=== PATIENT | male | born 1990 | race Caucasian/White ===

== ENCOUNTER → 2021-06-05 | Outpatient (CLI) | payer OTHER ==
--- NOTE | 2021-06-05 10:36 | CA ---
Transthoracic Echo Report Name: Celestine Rowe Age: 30 Gender: M : 1990 Exam Date: 06/05/2021 08:34 Exam Location: [facility] Ht (in): 72 Wt (lb): 203 Ordering Physician: Angeli Roman MD Attending/Referring Phys: [employer] Mayda Zamora RDCS Procedure CPT: Indications: i10 Cardiac Hx: Technical Quality: Good Contrast 1: Total Dose (mL): Contrast 2: Total Dose (mL): MEASUREMENTS (Male / Female) Normal Values 2D ECHO LV Diastolic Diameter PLAX 2.9 cm 4.2 - 5.9 / 3.9 - 5.3 cm LV Systolic Diameter PLAX 1.6 cm IVS Diastolic Thickness 1.7 cm 0.6 - 1.0 / 0.6 - 0.9 cm LVPW Diastolic Thickness 1.5 cm 0.6 - 1.0 / 0.6 - 0.9 cm LV Relative Wall Thickness 1.1 RV Internal Dim ED PLAX 2.8 cm LA Volume 39.5 cm 18 - 58 / 22 - 52 cm M-MODE Aortic Root Diameter MM 3.6 cm LA Systolic Diameter MM 2.6 cm LA Ao Ratio MM 0.7 MV E Point Septal Separation 1.5 cm AV Cusp Separation MM 2.0 cm DOPPLER AV Peak Velocity 107.7 cm/s AV Peak Gradient 4.6 mmHg MV Area PHT 3.1 cm MR Peak Velocity 93.9 cm/s MR Peak Gradient 3.5 mmHg Mitral E Point Velocity 74.7 cm/s Mitral A Point Velocity 48.8 cm/s Mitral E to A Ratio 1.5 MV Deceleration Time 247.7 ms MV E' Velocity 13.5 cm/s Mitral E to MV E' Ratio 5.5 TR Peak Velocity 172.0 cm/s TR Peak Gradient 11.8 mmHg Right Ventricular Systolic Press 16.0 mmHg PV Peak Velocity 116.3 cm/s PV Peak Gradient 5.4 mmHg PI Peak Gradient 9.5 mmHg FINDINGS Left Ventricle Moderately increased septal wall thickness. Left ventricular ejection fraction is estimated at 55-60_Normal left ventricular systolic function with no obvious regional wall motion abnormalities. %. Right Ventricle The right ventricle is normal in size and function. Right Atrium The right atrium is normal in size. Left Atrium The left atrium is normal in size. Mitral Valve Structurally normal mitral valve without significant stenosis or prolapse. There is mild mitral regurgitation. Aortic Valve Structurally normal aortic valve without significant sclerosis or stenosis. There is no aortic regurgitation. Tricuspid Valve Structurally normal tricuspid valve without significant stenosis. Pulmonary artery systolic pressure is normal. Trace tricuspid regurgitation. Pulmonic Valve Structurally normal pulmonic valve without significant stenosis. There is a trace pulmonic regurgitation. Pericardium Normal pericardium without effusion. Aorta Normal aortic root dimension. CONCLUSIONS #1. Moderate concentric left ventricle hypertrophy with a preserved LV function and ejection fraction of 55-60% #2. Mild mitral regurgitation. #3. Normal chamber sizes. #4. No pericardial effusion Previewed by: Dr. Soumya Lott MD (Electronically Signed) Final Date: 05 June 2021 10:35
--- NOTE | 2021-06-05 10:46 | P.STRESS ---
- Stress Test Note Stress Test Results/Findings: Exam Performed: stress test Exam Date: 06/05/21 Reason for Exam: HYPERTENSION Height: 5 ft 11 in Weight: 93.2 kg Protocol: CLAIRE Stage: 5 Duration of Exercise: 13:00 Resting Heart Rate: 72 Resting Blood Pressure: 147/93 Maximum Achieved Heart Rate: 193 Maximum Achieved Blood Pressure: 190/100 85% PMHR: 160 100% PMHR: 188 METS: 13.9 Technologist Comment: Stress Test Results/Findings: This is a 30-year-old gentleman with history of hypertension and family history being evaluated for cardiac status. Stress data: Baseline EKG showed sinus rhythm with normal UT interval and QRS duration. Blood pressure at rest is 147/93 with pulse rate of 72. Patient walked on the Claire protocol for 13 minutes achieving a maximal rate of 193 with a blood pressure 170/76. EKGs taken during and after exercise did not reveal significant changes from the baseline. Final impression: #1. Negative stress test #2. Patient did not experience any chest pain #3. No arrhythmias noted. #4. Patient's exercise capacity is average 2
--- NOTE | 2021-06-05 14:11 | EST ---
Stress Test Results/Findings: Exam Performed: stress test Exam Date: 06/05/21 Reason for Exam: HYPERTENSION Height: 5 ft 11 in Weight: 93.2 kg Protocol: CLAIRE Stage: 5 Duration of Exercise: 13:00 Resting Heart Rate: 72 Resting Blood Pressure: 147/93 Maximum Achieved Heart Rate: 193 Maximum Achieved Blood Pressure: 190/100 85% PMHR: 160 100% PMHR: 188 METS: 13.9 Technologist Comment: Stress Test Results/Findings: This is a 30-year-old gentleman with history of hypertension and family history being evaluated for cardiac status. Stress data: Baseline EKG showed sinus rhythm with normal MO interval and QRS duration. Blood pressure at rest is 147/93 with pulse rate of 72. Patient walked on the Claire protocol for 13 minutes achieving a maximal rate of 193 with a blood pressure 170/76. EKGs taken during and after exercise did not reveal significant changes from the baseline. Final impression: #1. Negative stress test #2. Patient did not experience any chest pain #3. No arrhythmias noted. #4. Patient's exercise capacity is average 2 MTDD
== END | disposition home or self-care (01) ==
LOC: RADECHMAIN 08:14
PROVIDERS: ATTEND Internal Medicine
DX: I51.7 Cardiomegaly (principal); I34.0 Nonrheumatic mitral (valve) insufficiency
CPT/HCPCS: 93017; 93306

== ENCOUNTER 2022-05-12 07:48 | Emergency (ER) | payer BC, OTHER ==
[2022-05-12 07:53] VITALS: TEMP 98.1
--- NOTE | 2022-05-12 08:07 | ED ---
General Adult HPI - General Chief complaint: Chest Pain Stated complaint: chest pain Time Seen by Provider: 05/12/22 07:53 Source: patient Mode of arrival: ambulatory Limitations: no limitations - History of Present Illness Initial comments: Dictation was produced using [employer] dictation software. please excuse any grammatical, word or spelling errors. Chief Complaint: 31-year-old male past history of hypertension presents to the emergency room for chest pain History of Present Illness: 31-year-old male with past medical history of hypertension presents to the emergency department for chest pain states that he has jolt T sharp chest pain to his substernal chest. Is nonradiating. Not associated with diaphoresis or nausea. It is not reproducible. Denies else worse with deep inspiration or with any sort of movements. He does report having positive family history. His father was diagnosed with a heart attack in his 40s. The ROS documented in this emergency department record has been reviewed and confirmed by me. Those systems with pertinent positive or negative responses have been documented in the HPI. All other systems are other negative and/or noncontributory. PHYSICAL EXAM: General Impression: Alert and oriented x3, not in acute distress HEENT: Normocephalic atraumatic, extra-ocular movements intact, pupils equal and reactive to light bilaterally, mucous membranes moist. Cardiovascular: Heart regular rate and rhythm Chest: Able to complete full sentences, no retractions, no tachypnea Abdomen: abdomen soft, non-tender, non-distended, no organomegaly Musculoskeletal: Pulses present and equal in all extremities, no peripheral edema Motor: no focal deficits noted Neurological: CN II-XII grossly intact, no focal motor or sensory deficits noted Skin: Intact with no visualized rashes Psych: Normal affect and mood ED course: 31-year-old male presents emergency department with atypical chest pain. He does have alleged significant family history. Vital signs upon arrival are within acceptable limits. EKG does not show any signs of ischemia or infarction. Nursing notes and chart review was performed EKG interpreted by me: Ventricular rate 83, sinus rhythm, AZ interval 161, QRS 106, QTC 292. No AZ prolongation, no QTC prolongation, no ST or T-wave changes noted. Overall, this EKG is unremarkable Was pt. sent in by a medical professional or institution (, PA, FILTER PRESS SUPERVISOR, urgent care, hospital, or longterm...) When possible be specific @ -No Did you speak to anyone other than the patient for history (EMS, parent, family, police, friend...)? What history was obtained from this source @ -No Did you review nursing and triage notes (agree or disagree)? Why? @ -I reviewed and agree with nursing and triage notes Were old charts reviewed (outside hosp., previous admission, EMS record, old EKG, old radiological studies, urgent care reports/EKG's, longterm records)? Report findings @ -No old charts were reviewed Differential Diagnosis (chest pain, altered mental status, abdominal pain women, abdominal pain men, vaginal bleeding, musculoskeletal, weakness, fever, dyspnea, syncope, headache, dizziness, GI bleed, back pain, seizure, CVA, palpatations, mental health)? @ -MDM differential chest pain EKG interpreted by me (3pts min.). @ -See above X-rays interpreted by me (1pt min.). @ -Acute processes CT interpreted by me (1pt min.). @ -None done U/S interpreted by me (1pt. min.). @ -None done What testing was considered but not performed or refused? (CT, X-rays, U/S, labs)? Why? @ -D-dimer was considered however patient is not high risk for PE What meds were considered but not given or refused? Why? @ -Felipe was considered however patient is low risk for ACS Did you discuss the management of the patient with other professionals (professionals i.e. , PA, FILTER PRESS SUPERVISOR, lab, RT, psych nurse, social work associate, fur blowing machine operator, teacher, pharmaceutical officer, ed case manager)? Give summary @ -No Was smoking cessation discussed for >3mins.? @ -No Was critical care preformed (if so, how long)? @ -No Were there social determinants of health that impacted care today? How? (Homelessness, low income, unemployed, alcoholism, drug addiction, transportation, low edu. Level, literacy, decrease access to med. care, residential, rehab)? @ -No Was there de-escalation of care discussed even if they declined (Discuss DNR or withdrawal of care, Hospice)? DNR status @ -No What co-morbidities impacted this encounter? (DM, HTN, Smoking, COPD, CAD, Cancer, CVA, ARF, Chemo, Hep., AIDS, mental health diagnosis, sleep apnea, morbid obesity)? @ -None Was patient admitted / discharged? Hospital course, mention meds given and route, prescriptions, significant lab abnormalities, going to OR and other pertinent info. @ -31-year-old male presents emergency department with atypical chest pain. Laboratory evaluation unremarkable. EKG is negative. Patient reevaluated at 9:12 AM found to be in stable medical condition. Second troponin was discussed with patient he did not want to wait around for the second test. Patient preferred to be discharge with return precautions. He is advised follow up with primary care doctor. Undiagnosed new problem with uncertain prognosis? @ -No Drug Therapy requiring intensive monitoring for toxicity (Heparin, Nitro, Insulin, Cardizem)? @ -No Were any procedures done? @ -No Diagnosis/symptom? Acute, or Chronic, or Acute on Chronic? Uncomplicated (without systemic symptoms) or Complicated (systemic symptoms)? @ -1. Acute atypical chest pain, no obvious source, no high-risk features Side effects of treatment? @ -No Exacerbation, Progression, or Severe Exacerbation? @ -No Poses a threat to life or bodily function? How? (Chest pain, [place], [place], pneumonia, PE, COPD, DKA, ARF, appy, cholecystitis, CVA, Diverticulitis, Homicidal, Suicidal, threat to staff... and all critical care pts) @ -No - Related Data Home Medications Medication Instructions Recorded Confirmed valACYclovir HCL [Valtrex] 500 mg PO DAILY 01/05/16 01/05/16 Previous Rx's Medication Instructions Recorded Sulfamethoxazole/Trimethoprim 1 each PO Q12H 14 Days tab 01/05/16 [Bactrim DS 800-160 mg] Allergies Allergy/AdvReac Type Severity Reaction Status Date / Time grass pollen Allergy Unknown Verified 05/12/22 07:52 Review of Systems ROS Statement: Those systems with pertinent positive or pertinent negative responses have been documented in the HPI. ROS Other: All systems not noted in ROS Statement are negative. Past Medical History Past Medical History: No Reported History History of Any Multi-Drug Resistant Organisms: None Reported Past Surgical History: No Surgical Hx Reported Past Psychological History: No Psychological Hx Reported Smoking Status: Never smoker Past Alcohol Use History: Daily Past Drug Use History: None Reported General Exam Limitations: no limitations Course Vital Signs 05/12/22 07:50 Temperature 98.1 F Pulse Rate 88 Respiratory 18 Rate Blood Pressure 147/98 O2 Sat by Pulse 99 Oximetry Medical Decision Making - Lab Data Result diagrams: 05/12/22 08:06 05/12/22 08:06 Lab Results 05/12/22 05/12/22 05/12/22 Range/Units 08:06 08:06 08:06 WBC 4.2 (3.8-10.6) k/uL RBC 5.21 (4.30-5.90) m/uL Hgb 16.6 (13.0-17.5) gm/dL Hct 47.4 (39.0-53.0) % MCV 90.9 (80.0-100.0) fL MCH 31.8 (25.0-35.0) pg MCHC 35.0 (31.0-37.0) g/dL RDW 12.5 (11.5-15.5) % Plt Count 192 (150-450) k/uL MPV 7.7 Neutrophils % 54 % Lymphocytes % 33 % Monocytes % 7 % Eosinophils % 2 % Basophils % 1 % Neutrophils # 2.3 (1.3-7.7) k/uL Lymphocytes # 1.4 (1.0-4.8) k/uL Monocytes # 0.3 (0-1.0) k/uL Eosinophils # 0.1 (0-0.7) k/uL Basophils # 0.0 (0-0.2) k/uL PT 11.0 (9.0-12.0) sec INR 1.0 (<1.2) APTT 26.5 (22.0-30.0) sec Sodium 142 (137-145) mmol/L Potassium 4.5 (3.5-5.1) mmol/L Chloride 108 H (98-107) mmol/L Carbon Dioxide 22 (22-30) mmol/L Anion Gap 12 mmol/L BUN 11 (9-20) mg/dL Creatinine 0.97 (0.66-1.25) mg/dL Est GFR (CKD-EPI)AfAm >90 (>60 ml/min/1.73 sqM) Est GFR (CKD-EPI)NonAf >90 (>60 ml/min/1.73 sqM) Glucose 91 (74-99) mg/dL Calcium 10.0 (8.4-10.2) mg/dL Magnesium 2.1 (1.6-2.3) mg/dL Total Bilirubin 1.0 (0.2-1.3) mg/dL AST 63 H (17-59) U/L ALT 86 H (4-49) U/L Alkaline Phosphatase 59 (38-126) U/L Troponin I (0.000-0.034) ng/mL Total Protein 8.6 H (6.3-8.2) g/dL Albumin 5.1 H (3.5-5.0) g/dL 05/12/22 Range/Units 08:06 WBC (3.8-10.6) k/uL RBC (4.30-5.90) m/uL Hgb (13.0-17.5) gm/dL Hct (39.0-53.0) % MCV (80.0-100.0) fL MCH (25.0-35.0) pg MCHC (31.0-37.0) g/dL RDW (11.5-15.5) % Plt Count (150-450) k/uL MPV Neutrophils % % Lymphocytes % % Monocytes % % Eosinophils % % Basophils % % Neutrophils # (1.3-7.7) k/uL Lymphocytes # (1.0-4.8) k/uL Monocytes # (0-1.0) k/uL Eosinophils # (0-0.7) k/uL Basophils # (0-0.2) k/uL PT (9.0-12.0) sec INR (<1.2) APTT (22.0-30.0) sec Sodium (137-145) mmol/L Potassium (3.5-5.1) mmol/L Chloride (98-107) mmol/L Carbon Dioxide (22-30) mmol/L Anion Gap mmol/L BUN (9-20) mg/dL Creatinine (0.66-1.25) mg/dL Est GFR (CKD-EPI)AfAm (>60 ml/min/1.73 sqM) Est GFR (CKD-EPI)NonAf (>60 ml/min/1.73 sqM) Glucose (74-99) mg/dL Calcium (8.4-10.2) mg/dL Magnesium (1.6-2.3) mg/dL Total Bilirubin (0.2-1.3) mg/dL AST (17-59) U/L ALT (4-49) U/L Alkaline Phosphatase (38-126) U/L Troponin I 0.012 (0.000-0.034) ng/mL Total Protein (6.3-8.2) g/dL Albumin (3.5-5.0) g/dL Disposition Clinical Impression: Chest pain Disposition: HOME SELF-CARE Condition: Good Instructions (If sedation given, give patient instructions): Chest Pain (ED) Is patient prescribed a controlled substance at d/c from ED?: No Referrals: Angeli Roman MD [Primary Care Provider] - 1-2 days Time of Disposition: 09:12
--- NOTE | 2022-05-12 08:32 | XR ---
EXAMINATION TYPE: XR chest 2V DATE OF EXAM: 05/12/2022 8:16 AM COMPARISON: Chest radiographs from 08/08/2011 TECHNIQUE: XR chest 2V Frontal and lateral views of the chest. CLINICAL INDICATION:Male, 31 years old with history of Chest Pain; FINDINGS: Lungs/Pleura: There is no evidence of pleural effusion, focal consolidation, or pneumothorax. Pulmonary vascularity: Unremarkable. Heart/mediastinum: Cardiomediastinal silhouette is unremarkable. Musculoskeletal: No acute osseous pathology. IMPRESSION: No acute cardiopulmonary disease/process.
[2022-05-12 08:33] LABS: ALT 86 U/L (4-49); AST 63 U/L (17-59); African American GFR (CKD) >90 (>60 ml/min/1.73 sqM); Albumin 5.1 g/dL (3.5-5.0); Alkaline Phosphatase 59 U/L (38-126); Anion Gap 12 mmol/L; Blood Urea Nitrogen 11 mg/dL (9-20); Carbon Dioxide 22 mmol/L (22-30); Chloride 108 mmol/L (98-107); Glucose 91 mg/dL (74-99); Magnesium 2.1 mg/dL (1.6-2.3); Non-African American GFR(CKD) >90 (>60 ml/min/1.73 sqM); Potassium 4.5 mmol/L (3.5-5.1); Sodium 142 mmol/L (137-145); Total Protein 8.6 g/dL (6.3-8.2)
[2022-05-12 08:55] LABS: Partial Thromboplastin Time 26.5 sec (22.0-30.0)
[2022-05-12 08:59] LABS: Basophils % (A) 1 %; Eosinophils # (A) 0.1 k/uL (0-0.7); Eosinophils % (A) 2 %; HCT 47.4 % (39.0-53.0); HGB 16.6 gm/dL (13.0-17.5); Lymphocytes # (A) 1.4 k/uL (1.0-4.8); Lymphocytes % (A) 33 %; MCH 31.8 pg (25.0-35.0); MCV 90.9 fL (80.0-100.0); Mean Platelet Volume 7.7; Monocytes # (A) 0.3 k/uL (0-1.0); Monocytes % (A) 7 %; Neutrophils # (A) 2.3 k/uL (1.3-7.7); Neutrophils % (A) 54 %; Platelet Count 192 k/uL (150-450); RBC 5.21 m/uL (4.30-5.90); RDW 12.5 % (11.5-15.5); WBC 4.2 k/uL (3.8-10.6)
[2022-05-12 09:16] VITALS: BP 129/84; PULSE 80; RESP 16
== END 2022-05-12 09:21 | disposition home or self-care (01) ==
LOC: EC 07:48
DX: R07.89 Other chest pain (principal); I10 Essential (primary) hypertension; Z79.899 Other long term (current) drug therapy; Z88.3 Allergy status to other anti-infective agents
CPT/HCPCS: 36415; 71046; 80053; 83735; 84484; 85025; 85610; 85730; 93005; 99285